=== PATIENT | female | born 2005 | race African-American/Black ===

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

== ENCOUNTER 2024-04-13 12:26 | Emergency (ER) | payer SELFPAY ==
[2024-04-13 13:12] VITALS: BP 105/61; PULSE 72; RESP 16; TEMP 36.6; O2SAT 100; BMI 22.7
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
[2024-04-13 15:39] VITALS: BP 104/60; PULSE 57; RESP 16; TEMP 37; O2SAT 97
[2024-04-13 16:00] VITALS: BP 98/55; PULSE 57; TEMP 36.8; O2SAT 100
[2024-04-13] MEDS: Lidocaine HCl 1 % MPF 5 ML VIAL INFILTRATI (16:06)
[2024-04-13 16:55] VITALS: BP 98/55; PULSE 57; RESP 16; TEMP 36.8; O2SAT 100
== END 2024-04-13 16:56 | disposition home or self-care (01) ==
PROVIDERS: Emergency Provider Internal Medicine
DX: S20.151A Superficial foreign body of breast, right breast, initial encounter (principal); W45.8XXA Other foreign body or object entering through skin, initial encounter; Y93.9 Activity, unspecified; Y92.9 Unspecified place or not applicable; Y99.9 Unspecified external cause status
CPT/HCPCS: 99284

== ENCOUNTER 2025-10-29 13:54 | Emergency (ER) | payer OTHER, SELFPAY ==
[2025-10-29 13:58] VITALS: BP 108/69; PULSE 118; RESP 20; TEMP 37.2; O2SAT 98; BMI 22.0
--- NOTE | 2025-10-29 13:58 | ED_ITS ---
HPI - General Adult General Chief complaint: Abdominal Pain Stated complaint: Left side pain pain Time Seen by Provider: 10/29/25 17:25 History of Present Illness HPI narrative: Author / Clinician: Shun Durán MD Chief Complaint Right-sided flank pain and urinary frequency/urgency ? 5 days History of Present Illness 26-year-old woman with no significant past medical history presents with 5 days of progressive urinary symptoms and right-sided flank pain. She reports new- onset urinary urgency and frequency with a sensation of incomplete bladder emptying and overall low urine output. She denies dysuria or hematuria. Approximately two days after urinary symptoms began, she developed severe right flank pain that was tender to touch and associated with a ?locking up? sensation when attempting to have a bowel movement; this flank pain has since improved and is no longer severe at rest. She continues to note suprapubic tightness/pain and reports feeling ?foggy,? intermittently hot, and having chills but has not recorded a temperature at home. She denies diarrhea, blood in the stool, or other abnormal bowel changes. She has never experienced a urinary tract infection or kidney stones previously. She takes no daily prescription medications but has taken ibuprofen for pain. --- Review of Systems ? Constitutional: Positive for subjective fever/feeling hot, chills; denies weight change. ? Genitourinary: Positive for urinary urgency, frequency, sensation of incomplete emptying, low urine output, suprapubic discomfort; denies dysuria, hematuria. ? Gastrointestinal: Reports ?locking? right flank discomfort with bowel movements; denies diarrhea, blood in stool. ? Neurologic: Reports feeling ?foggy.? ? Other systems not discussed. --- Physical Examination Vital Signs (on arrival): Tachycardic; normotensive; afebrile by measurement (subjective fever reported). ? (No exact values documented.) General: Alert, awake, appears uncomfortable but in no acute distress, well hydrated. Head: Atraumatic. Eyes: Anicteric, normal conjunctiva. ENT: Moist mucous membranes, no pallor. Neck: Supple, no lymphadenopathy. Skin: Warm, well perfused. Respiratory: Breathing comfortably, clear to auscultation bilaterally, symmetric chest expansion; no wheezes, rales, or rhonchi. Cardiovascular: Regular rate and rhythm, no murmurs or rubs, distal extremities warm without edema. Abdominal: Soft, nondistended. Suprapubic tightness/pain. Flank/Back: Right flank tenderness reported previously, minimal tenderness on exam. Left flank nontender. Neurologic: Alert; grossly intact motor function in all extremities. Psych: Calm, cooperative. --- Medical Decision Making Preliminary Differential: - Acute uncomplicated urinary tract infection - Pyelonephritis (most likely given flank pain, systemic symptoms) - Ureterolithiasis with secondary UTI (less likely; no hematuria, no stones seen on POCUS) - Urinary retention with infection This is a 26-year-old female with right-sided flank pain and symptoms concerning for pyelonephritis. No obstruction, JAJA or severe metabolic derangement. Plan: Initial Plan - IV fluid resuscitation for relative hypovolemia/low urine output - Empiric IV antibiotics for UTI/pyelonephritis (medication and dosing per ED protocol) - Pain control with NSAIDs and additional analgesia as needed - Reassess vitals, urine output, and clinical status - Await urinalysis/culture results Independent Data Analysis/Interpretation: - Imaging: Independently interpreted chcos-by-wuyt renal ultrasound ? bilateral kidneys without hydronephrosis; minimal anechoic urine visualized in bladder. - POCUS: see above for renal/bladder ultrasound findings. Additional Complexity: - Social Determinants of health: [ ] - Consults: [ ] - Independent review of external records: None available Risk: Moderate ? acute illness with systemic symptoms (tachycardia, chills) and initiation of IV antibiotics. --- ED Course, Updates [id number] renal ultrasound performed showing normal kidneys without hydronephrosis and minimal bladder urine volume. Patient received IV fluids and initial dose of broad-spectrum antibiotics. Pain controlled with NSAID. Disposition: DC with inproved BP, heart rate, fever and pain on reassessment Critical Care: N/A ? patient not critically ill; no critical care time billed. Related Data Previous Rx's ?Medication ?Instructions ?Recorded bacitracin 500 unit/gram topical 1 appl topical BID #3 0 grams 04/13/24 ointment cephalexin 500 mg capsule 500 mg PO QID 7 days #28 cap s 04/13/24 ciprofloxacin HCl 500 mg tablet 500 mg PO Q12H 7 days #14 tabs 10/29/25 morphine 15 mg immediate release 7 mg (0.4667 x 15 mg) PO BID PRN 10/29/25 tablet pain #7 tabs Allergies Allergy/AdvReac Type Severity Reaction Status Date / Time montelukast (From Singulair) Allergy Unknown Verified 10/29/25 14:01 [facility] Social History Social History Advance Directives: No Advance Directives Information Provided: Yes Do you have a plan to hurt others: No Plan Physical Exam ED Vital Signs: Vital Signs - 24 hr 10/29/25 13:58 10/29/25 18:34 Temperature 98.9 F 98.3 F Pulse Rate 118 H 109 H Respiratory Rate 20 18 Blood Pressure 108/69 100/61 Pulse Oximetry 98 98 Oxygen Delivery Method Room Air Room Air BMI result Body Mass Index 22.0 Course Course Course Narrative: Rapid medical examination performed in triage by Minnie Westfall PA-C: Patient is a 20 year old female presenting to the emergency department with lower abdominal pain and lower back pain. Detailed physical exam and review of systems are deferred to the web marketing specialist. Labs and swabs ordered. Patient placed back in the waiting room pending room availability and results. Medications Administered Discontinued Medications Generic Name Dose Route Start Last Admin Trade Name Freq PRN Reason Stop Dose Admin Acetaminophen 650 mg 10/29/25 21:05 10/29/25 21:09 Acetaminophen 325 Mg Tablet PO 10/29/25 21:06 650 mg ONCE ONE Administration Lactated Ringer's 1,000 mls @ 999 mls/hr 10/29/25 18:15 10/29/25 21:13 Lr IV 10/29/25 20:15 Infused .Q1H1M ALEK Infusion Ceftriaxone Sodium 1 gm/ 50 mls @ 100 mls/hr 10/29/25 18:13 10/29/25 19:13 Sodium Chloride IV 10/29/25 18:42 Infused ONCE ONE Infusion Lactated Ringer's 1,000 mls @ 999 mls/hr 10/29/25 21:15 10/29/25 22:35 Lr IV 10/29/25 22:15 Infused .Q1H1M ALEK Infusion Ketorolac Tromethamine 15 mg 10/29/25 18:13 10/29/25 18:41 Ketorolac Tromethamine 15 Mg/Ml Vial IVPUSH 10/29/25 18:14 15 mg ONCE ONE Administration Morphine Sulfate 2 mg 10/29/25 21:12 10/29/25 21:19 Morphine Sulfate 4 Mg/Ml Cartridge IVPUSH 10/29/25 21:13 2 mg ONCE ONE Administration Protocol Ondansetron HCl 4 mg 10/29/25 19:23 10/29/25 19:27 Ondansetron Hcl 4 Mg/2 Ml Vial IVPUSH 10/29/25 19:24 4 mg ONCE ONE Administration Procedures Procedure Narrative Procedure Narrative: EMERGENCY ULTRASOUND INTERPRETATION-Limited Retroperitoneal (Renal)? The study reveals: Impression: NO EVIDENCE OF UROLOGIC OBSTRUCTION Indication: FLANK PAIN Bladder: ANECHOIC URINE Right Kidney: NO HYDRONEPHROSIS Left Kidney: NO HYDRONEPHROSIS Additional Findings:? Performed by: MD Luis Armando ?CPT: [id number] ; Reference Codes? [email or web address] Medical Decision Making Lab Data 10/29/25 14:33 10/29/25 14:33 Labs: Lab Results 10/29/25 10/29/25 Range/Units 14:33 14:41 WBC 19.6 H (4.8-10.8) X10*3/uL RBC 4.51 (4.20-5.50) X10*6/uL Hgb 12.5 (12.0-16.0) g/dl Hct 37.3 (37.0-47.0) % MCV 82.7 (80.0-98.0) fL MCH 27.7 (27.0-33.0) pg MCHC 33.5 (31.0-35.0) g/dl RDW 12.5 (11.0-16.0) % Plt Count 321 (160-400) X10*3/uL MPV 8.9 L (9.4-12.3) fL Immature Gran % (Auto) 0.9 H (0.0-0.4) % Neut % (Auto) 85.5 H (45-73) % Lymph % (Auto) 6.8 L (20-40) % [place] % (Auto) 6.4 (2-11) % Eos % (Auto) 0.1 (0-4) % Baso % (Auto) 0.3 (0-2) % Lymph # (Auto) 1.3 (1.2-4.9) X10*3/uL [place] # (Auto) 1.3 H (0.1-1.2) X10*3/uL Eos # (Auto) 0.0 (0.0-0.4) X10*3/uL Baso # (Auto) 0.1 (0.0-0.2) X10*3/uL Abs Immat Gran (auto) 0.18 H (0.00-0.03) X10*3/uL Absolute Neuts (auto) 16.7 H (2.0-8.3) x10*3/uL Absolute Nucleated RBC 0.000 (0.0-0.012) X10*3/uL Nucleated RBC % (auto) 0.0 (0.0-0.2) /100WBC Sodium 136 (135-145) mmol/L Potassium 3.4 (3.3-5.1) mmol/L Chloride 104 (96-108) mmol/L Carbon Dioxide 23 (22-29) mmol/L Anion Gap 12 (12-20) BUN 7 L (9-16) mg/dL Creatinine 0.87 (0.5-1.4) mg/dL Estim Creat Clear Calc 83.9 Estimated GFR > 60 Random Glucose 109 (60-115) mg/dL Calcium 9.4 (8.4-10.2) mg/dL Magnesium 1.7 (1.6-2.6) mg/dL Total Bilirubin 1.1 H (0.0-1.0) mg/dL AST 16 (5-31) U/L ALT 7 (0-31) U/L Alkaline Phosphatase 85 (39-117) U/L Total Protein 7.5 (6.5-8.0) g/dL Albumin 4.0 (3.5-5.0) g/dL Beta HCG, Quant < 2 mIU/mL Urine Color Dark Yellow Urine Appearance Turbid Urine pH 6.0 (5.0-9.0) Ur Specific [place] 1.015 (1.005-1.025) Urine Protein 100 (2+) H (Neg-Trace) mg/dL Urine Glucose (UA) Negative (Negative) mg/dL Urine Ketones Negative (Negative) mg/dL Urine Blood Large (3+) H (Negative) Urine Nitrite Positive H (Negative) Ur Leukocyte Esterase Large (3+) H (Negative) Urine RBC 3-5 H (0-2) /HPF Urine WBC >50 H (0-5) /HPF Ur Squamous Epith Cells 11-20 (0-2) /HPF Urine Bacteria 3+ (None Seen) Hyaline Casts 3-5 (0-2) /LPF Influenza Type A (PCR) NEGATIVE (Negative) Influenza Type B (PCR) NEGATIVE (Negative) RSV RNA Qual (PCR) NEGATIVE (Negative) SARS-CoV-2 RNA (RT-PCR) NEGATIVE (Negative) Discharge Plan Discharge Clinical Impression: Pyelonephritis Patient Disposition: Home, Self-Care Instructions: Kidney Infection (ED) Additional Instructions: Discharge Instructions: Acute Pyelonephritis You have been diagnosed with acute pyelonephritis, which is a bacterial infection of your kidney. This infection started in your bladder and traveled up to your kidney, causing the flank pain, urinary symptoms, and fever you experienced. You are being sent home with an antibiotic called ciprofloxacin 500 mg that you should take twice daily (every 12 hours) for 7 days?it is very important that you complete the entire course even if you start feeling better.[ 1] https://www.nejm.org/doi/full/10.1056/ACJGzf4478388 [2] https://Ad Summos.GlobeTrotr.com.com/angie/article-lookup/doi/10.1093/angie/yat037 Drink plenty of fluids and get adequate rest to help your body fight the infection. You should start feeling better within 48-72 hours of starting the antibiotic.[3] https://pubmed.ncbi.nlm.nih.gov/32534244 [1] https://www.nejm.org/doi/full/10.1056/RJTXcs9153992 Return to the emergency department immediately if you develop worsening fever, severe or worsening flank/back pain, persistent vomiting that prevents you from taking your medication or staying hydrated, confusion, difficulty breathing, decreased urination, or if your symptoms do not improve within 2-3 days of starting the antibiotic.[1] https://www.nejm.org/doi/full/10.1056/VXIMty1764370 Follow up with your primary care doctor within 1-2 weeks, or sooner if your symptoms are not improving. Prescriptions: New ciprofloxacin HCl 500 mg tablet 500 mg PO Q12H 7 Days Qty: 14 0RF morphine 15 mg tablet 7 mg PO BID PRN (Reason: pain) Qty: 7 0RF Rx Instructions: Partial Fill upon patient request. No Action cephalexin 500 mg capsule 500 mg PO QID 7 Days Qty: 28 0RF bacitracin 500 unit/gram ointment 1 appl topical BID Qty: 30 0RF Interventions: ED Discharge Assessment Last Done: 10/29/25 23:12 Discharge Date/Time: 10/29/25 23:12 Print Language: Czech
--- NOTE | 2025-10-29 14:03 | ECG_ITS ---
Test Reason : tachy Blood Pressure : */* mmHG Vent. Rate : 101 BPM Atrial Rate : 101 BPM P-R Int : 180 ms QRS Dur : 62 ms QT Int : 306 ms P-R-T Axes : 43 59 43 degrees QTcB Int : 396 ms Sinus tachycardia Otherwise normal ECG No previous ECGs available Referred By: Minnie Westfall Electronically Signed By: MALLORY ZELAYA
[2025-10-29 14:39] LABS: MANUAL DIFF FLAG NO
[2025-10-29 14:44] LABS: Hematocrit 37.3 % (37.0-47.0); Hemoglobin 12.5 g/dl (12.0-16.0); Imm Gran Abs Auto 0.18 X10*3/uL (0.00-0.03); Imm Gran Pct Auto 0.9 % (0.0-0.4); Lymphocytes Absolute Auto 1.3 X10*3/uL (1.2-4.9); Mean Corpuscular HGB Conc 33.5 g/dl (31.0-35.0); Mean Corpuscular Hemoglobin 27.7 pg (27.0-33.0); Mean Corpuscular Volume 82.7 fL (80.0-98.0); NRBC Abs Auto 0.000 X10*3/uL (0.0-0.012); NRBC Pct Auto 0.0 /100WBC (0.0-0.2); Platelet Count 321 X10*3/uL (160-400); Red Blood Count 4.51 X10*6/uL (4.20-5.50); White Blood Count 19.6 X10*3/uL (4.8-10.8)
--- OUTSIDE RECORDS SUMMARY | 2025-10-29 14:47 | XMS_ITS | Clinical Summary ---
Author Organization [address] Building Address [address] [place] [address] Phone Care Team Providers Care [employer] Name Role Phone Jason Penn MD Primary Care Provider [phone] Allergies No known active allergies Medications metroNIDAZOLE (FLAGYL) 500 mg tablet Take 1 tablet (500 mg total) by mouth 2 (two) times a day for 7 days. Do not consume alcohol until 48 hours after last dose 14 tablet 09/23/2025 09/30/20 25 Active Problems No known active problems Encounters Date Type Department Care Team Description 09/23/2025 Telephone [facility] [address] [phone] Casey Burger PA 09/22/2025 4:45 PM EST Office Visit Walk-In [facility] - [address] [phone] Juan Horton NP Screening examination for STI (Primary Dx) from Last 3 Months Family History Medical History Relation Name Comments Strabismus Father Cataracts Maternal Grandmother Blindness Neg Hx Glaucoma Neg Hx Macular degeneration Neg Hx Relation Name Status Comments Father Maternal Grandmother Social History Tobacco Use Types Packs/Day Years Used Date Smoking Tobacco: Never Comments Unknown Sex and Gender Information Value Date Recorded Sex Assigned at Not on file Legal Sex Female 8:46 AM EST Gender Identity Not on file Sexual Orientation Not on file Last Filed Vital Signs Vital Sign Reading Time Taken Comments Blood Pressure 92/54 09/22/2025 4:56 PM EST Pulse 68 09/22/2025 4:56 PM EST Temperature 36.6 C (97.8 F) 09/22/2025 4:56 PM EST Respiratory Rate - - Oxygen Saturation 98% 09/22/2025 4:56 PM EST Inhaled Oxygen Concentration - - Weight 57.1 kg (125 lb 14.4 oz) 024 12:28 PM EST Height 160 cm (5' 3 ) 12/18/2023 12:28 PM EST Body Mass Index 22.3 12/18/2023 12:28 PM EST Plan of Treatment Health Maintenance Due Date Last Done Comments IPV Vaccines (4 of 4 - 4-dose series) 2007 07/26/2004, 02/29/2004, 02/19/2004, Additional history exists Pneumococcal Vaccine: Pediatrics (0 to 5 Years) and At-Risk Patients (6 to 49 Years) (1 of 1 - PPSV23, PCV20, or PCV21) 2009 01/06/2005, 07/26/2004, 02/19/2004, Additional history exists Meningococcal B Vaccine (1 of 2 - Standard) 2019 HIV Screening 10/05/2022 Hepatitis C Screening 10/05/2022 Social Influencers of Health Screening 10/05/2022 Cervical Cancer Screening: Pap Smear 2024 Depression Screening 11/02/2024 COVID-19 Vaccine ( season) 2025 Influenza Vaccine (#1) 2025 12/18/2023, 2015 Gonorrhea/Chlamydia Screening 09/22/2026 09/22/2025, 05/19/2025 DTaP,Tdap,and Td Vaccines (8 - Td or Tdap) 12/18/2033 12/18/2023, 08/23/2015, 02/28/2008, Additional history exists RSV Immunization Adult Patients (1 - 1-dose 75+ series) 2078 Hepatitis B Vaccines Completed 06/25/2004, 2003, 2003 HIB Vaccines Completed 01/06/2005, 04/03, 02/19/2004, Additional history exists MMR Vaccines Completed 01/28/2008, 10/18/2004 Varicella Vaccines Completed 01/28/2008, 10/18/2004 Hepatitis A Vaccines Completed 01/21/2021, 08/12/20 Meningococcal ACWY Vaccine Completed 01/21/2021, HPV Vaccines Completed 02/19/2024, 09/0 07/2016, 10/29/2015, Additional history exists RSV Immunization Patients Under 20 months Aged Out No longer eligible based on patient's age to complete this topic Procedures Procedure Name Priority Date/Time Associated Diagnosis Comments CHLAMYDIA TRACHOMATIS AND NEISSERIA GONORRHOEAE PCR Routine 09/22/2025 5:23 PM EST Screening examination for STI VAGINITIS PATHOGENS BY PCR Routine 09/22/2025 5:23 PM EST Screening examination for STI from Last 3 Months Results * (ABNORMAL) Vaginitis pathogens molecular study (09/22/2025 5:23 PM EST) Trichomonas vaginalis Positive(A) Negative 09/23/2025 1:06 PM EST [facility] Gardnerella vaginalis Positive(A) Negative 09/23/2025 1:06 PM EST [facility] Janet Species Negative Negative 1:06 PM EST [facility] Swab Vaginal structure / Unknown Non-blood Collection / Unknown 09/22/2025 5:23 PM EST 09/22/2025 5:23 PM EST us Juan Horton NP LAB MICROBIOLOGY - GENERAL OR DERABLES Final Result [facility] [address] [place] [address], * Chlamydia trachomatis and Neisseria gonorrhoeae molecular study (09/22/2025 5:23 PM EST) Neisseria gonorrhoeae PCR Negative Negative LAB MOLECULAR DIAGNOSTICS METHOD 09/23/2025 9:59 AM EST [facility] Chlamydia trachomatis PCR Negative Negative LAB MOLECULAR DIAGNOSTICS METHOD 09/23/2025 9:59 AM EST [facility] Urine Urine specimen from urethra / Unknown Non-blood Collection / Unknown 09/22/2025 5:23 PM EST 09/22/2025 5:23 PM EST us Juan Horton SCRUBBER SYSTEM ATTENDANT LAB MICROBIOLOGY - GENERAL OR DERABLES Final Result [facility] [address] [place] [address], from Last 3 Months Insurance [facility] [employer] Care Teams [employer] Relationship Specialty Start Date End Date Jason Penn MD [address] [place] [address] PCP - General Internal Medicine 05/19/25
--- OUTSIDE RECORDS SUMMARY | 2025-10-29 14:47 | XMS_ITS ---
Author Name [facility] Organization Unknown Care Team Organization Name Specialty Phone Email Start Date End Da te [facility] Olive Garrison Primary Care 07/09/202306/20 [facility] PRAVEEN SANCHEZ Primary Care 09/09/2022
--- OUTSIDE RECORDS SUMMARY | 2025-10-29 14:47 | XMS_ITS | Data Portability ---
Author Organization [place] - [facility] Address [address] [place] [address] Care Team Providers Care Acquisitions Librarian Name Role Phone [facility] OTHER Assessment Encounter Date Assessment Date Assessment LastModified by Organization Details LastModified Time 10/23/2021 10/23/2021 Proper Personal Protective Equipment (PPE), including gloves, eye protection and masks were donned and doffed appropriately and all equipment cleaned using approved technique with germicidal disposable wipes prior to and after care of this patient according to [facility]'s infection prevention protocols. Overview/History : 16 yo unvaccinated female with 1.5d of body ache with no other symptoms wants a COVID test Exam: pulm, ENT exams benign, pt in NAD DDx considered, but not limited to: COVID viral illness Work up/Results: PCR sent out Plan/Discussion: -nontoxic appearing NAD no resp distress AVSS -send out PCR -pt will maintain po intake -if symptoms worsen she will seek emergent re-eval In order to obtain further information and compare any laboratory results/values, I have accessed . This information was pertinent in my medical decision making today. [email or web address] Not available 10/23/2021 13:01:37 Plan of Treatment Reminders Order Date Submit Date Provider Last Modified By Organization Details Last Modified Time Details Appointments None recorded. Lab unlisted lab - covid-19 (novel coronaviru s) PCR 2020 021 [place] (Centralized Electronic Ordering - All Locations), Patient Can Go To The Location Of Their Choice, [id number] 21:23:25 Referral None recorded. Procedures None recorded. Surgeries None recorded. Imaging None recorded. Medication Orders None recorded. Patient TargetsNo targets recorded. Patient Instructions Encounter Date Encounter Id Patient Instructions Last Modified By Organization Details Last Modified Time 10/23/2021 [id number] Inhaler Instructions Before use, you need to prime the inhaler: Take the cap off the mouthpiece and put the inhaler in the spacer Shake the inhaler for 5 seconds Hold the inhaler upright with 1 finger on the top of the canister, the thumb on the bottom of the inhaler, and your other hand holding the spacer Express a large breath Close lips around spacer Press down on the canister After you press down on the canister, breathe (or have your child breathe in) deeply and slowly and hold your breath for 10 seconds Take out of your mouth and slowly exhale If you were instructed to take 2 puffs of the inhaler, wait one minute before you give the second puff. Shake the inhaler again before the second puff. If the inhaler is a steroid medicine (also called a g lucocorticoid or c orticosteroid ), rinse out your mouth, gargle, and spit out the water Cleaning: If you use the inhaler every day, you need to clean it at least once a week. If you use less often, clean the inhaler when you see powder in or around the hole. To clean an inhaler: Remove the canister and cap from the mouthpiece. Do not wash the canister or put the canister under water. Run warm water through the mouthpiece for 30 to 60 seconds Shake the water off of the mouthpiece and let it air dry Clean the spacer every 1-2 weeks. First, remove the inhaler from the spacer. Wash the spacer with warm water and dishwashing soap, but do NOT rinse it. Then let it air dry. Leaving the spacer a little soapy after cleaning actually helps it work better. [email or web address] Not available 10/23/2021 12:50:50 Reason for Referral None Reported. Results Created Date Observation Date Name Description Value Unit Range Abnormal Flag Note LastModifiedBy Organization Detail LastModifiedTime 10/23/20 21 10/24/2021 COVID -19 (NOVE L CORON AVIRU S) PCR covid-19 PCR specimen source NASAL Not Available [facility] (Centralized Electronic Ordering - All Locations) Patient Can Go To The Location Of Their Choice, [id number] 10/26/2021 21:23:25 10/23/20 21 10/26/2021 COVID -19 (NOVE L CORON AVIRU S) PCR covid-19 PCR result (neg) abnormal POSIT STEPH Posit steph for detec tion of 2019- novel Coron aviru s (2018 -nCoV ) by real- time RT-PC R. Resul t repor steven to the [facility]. To preve nt error s in diagn osis, test resul ts shoul d be inter prete d in the jose xt of clini aníbal findi ngs and other labor atory data. Rare polym orphi sms exist that could lead to false -nega tive or false -posi tive resul ts. If resul ts obtai miky do not match the clini aníbal findi ngs, addit ional testi ng shoul d be consi dered . This test has been autho rized by the FDA under an Emerg ency Use Autho rizat ion (EUA) for use by autho rized labor atori es. Testi ng perfo rmed by real time PCR utili [facility] Aero0 SARS- CoV-2 test. Not Available [facility] (Centralized Electronic Ordering - All Locations) Patient Can Go To The Location Of Their Choice, [id number] 10/26/2021 21:23:25 Result Notes None recorded. Medical Equipment None Reported. Medications Name Sig Start Date Stop Date Status Note LastModified by Organization Details LastModified Time cetirizine 10 mg tablet active Not Available Not Available Not Available tretinoin 0.025 % topical cream active Not Available Not Availabl e Not Available metronidazole 500 mg tablet active Not Available Not Available No t Available sulfacetamide sodium (acne) 10 % lotion (suspension) active Not Available Not Available Not Available prochlorperazine maleate 10 mg tablet active Not Available Not Available Not Available sulfamethoxazole 800 mg-trimethoprim 160 mg tablet active Not Available Not Availabl e Not Available cefadroxil 500 mg capsule active Not Available Not Available Not Available misoprostol 200 mcg tablet active Not Available Not Available N ot Available fluticasone propionate 50 mcg/actuation nasal spray,suspension active Not Available Not Avail able Not Available clindamycin 1 % lotion active Not Available Not Available Not Available Vitals Date Recorded Heart rate Oxygen saturation Respiratory rate Body temperature Systolic And Diastolic Provider Name and Address Organization Details Last Updated DateTime 91 /min 97 % 18 /min 97.4 [degF] 110/70 mm[Hg] Not Available [facility] 12:54:30 Social History None recorded. Functional Status None recorded. Mental Status None recorded. Family History Nothing Reported. Medical History No medical history recorded. Gynecological HistoryNo gynecological history recorded. Obstetrics History GPAL:G 0 P 0 0 0 0 Past Encounters Encounter ID Performer Location Encounter Start Date Encounter Closed Date Diagnosis/Indication Diagnosis SNOMED-CT Code Diagnosis ICD10 Code Diagnosis IMO Codes Diagnosis Note [id number] DARYA Melendez [facility] [address] [place] [address] 10/23/2021 12:48:36 10/28/2021 20:35:11 Viral syndrome 249505182 B34.9 Health Concerns Section Related Observation LastModified by Organization Detai ls LastModified Time None Recorded Concern Status LastModified by Organization Details LastModified Time None Recorded Advance Directives Directive None Recorded Payers Insurance Date Sequence Insurance Name Policy Number Policy Mcclain Covered Member ID Mcclain Member ID Guarantor Name 10/27/2021 1 *SELF PAY* Shun Henry [id number] Shun Henry 10/28/2021 1 [facility] - MEDICARE PREFERRED (MEDICARE REPLACEMENT HMO) [id number] Shun Henry [id number] Shun Henry 10/27/2021 1 [facility] - MEDICARE PREFERRED (MEDICARE REPLACEMENT HMO) [id number] Shun Llan[place]on [id number] Shun Henry 10/28/2021 1 [facility] TOGETHER WITH [facility] (MEDICAID HMO) [id number] Shun Henry [id number] Shun Henry Notes Date Note Type Note Provider Name and Address Organization Details Recorded Time 10/23/2021 text/html General HPI Template - DHReported by Patient 16 yo female new to provider and DHc/o body aches x1.5 daysnot getting worsehavent checked temp - doesnt feel like a feverno coughno sick contactnot vaccinated DARYA Melendez [address], [place], [address], [place] - [facility] 10/23/2021 18:39:20 OBGyn Episode No OBEpisode recorded.
[2025-10-29 14:48] LABS: Appearance Urine Turbid; Glucose Urine UA Negative (Negative); PH 6.0 (5.0-9.0); Specific Gravity - Urine 1.015 (1.005-1.025); UMIC TRIGGER UACC YES
[2025-10-29 14:59] LABS: UACC Culture Trigger YES
[2025-10-29 15:11] LABS: Alanine Aminotransferase 7 U/L (0-31); Albumin Level 4.0 g/dL (3.5-5.0); Alkaline Phosphatase 85 U/L (39-117); Anion Gap 12 (12-20); Aspartate Amino Transferase 16 U/L (5-31); Blood Urea Nitrogen 7 mg/dL (9-16); Calcium 9.4 mg/dL (8.4-10.2); Carbon Dioxide 23 mmol/L (22-29); Chloride 104 mmol/L (96-108); Creatinine Clr Calc Pharmacy 83.9; Estimated Glomerular Filt Rate > 60; Magnesium 1.7 mg/dL (1.6-2.6); Potassium 3.4 mmol/L (3.3-5.1); Sodium 136 mmol/L (135-145); Total Protein 7.5 g/dL (6.5-8.0)
[2025-10-29 15:25] LABS: Resp Syncy Virus RNA Qual PCR NEGATIVE (Negative); SARS COV2 PCR INHOUSE NEGATIVE (Negative)
[2025-10-29 18:34] VITALS: BP 100/61; PULSE 109; RESP 18; TEMP 36.8; O2SAT 98
[2025-10-29] MEDS: Lactated Ringers 1,000 ML 999 ML IV ×3 (18:40→21:20)
[2025-10-29 21:10] VITALS: BP 96/62; PULSE 120; RESP 20; TEMP 39.1; O2SAT 99
[2025-10-29 22:30] VITALS: BP 92/51; PULSE 108; RESP 20; TEMP 37.7; O2SAT 97
[2025-10-29 23:12] VITALS: BP 92/51; PULSE 105; RESP 20; TEMP 37.7; O2SAT 97
--- NOTE | 2025-11-04 10:58 | PC.NURSE ---
patient called for work note, advised we can give 3 days afetr dc. patient upset, states the morphine did not help her pain. patient advised to seek care at pcp or emergency room as advised on dc papers.
== END 2025-10-29 23:12 | disposition home or self-care (01) ==
PROVIDERS: Physician Assistant Medical; Emergency Provider Emergency Medicine
DX: R10.A2 Flank pain, left side (principal); N10 Acute pyelonephritis; R00.0 Tachycardia, unspecified; Z03.818 Encounter for observation for suspected exposure to other biological agents ruled out
CPT/HCPCS: 76775; 80053; 81001; 83735; 84702; 85025; 87086; 87088; 87186; 87637; 93005; 96361; 96374; 96375; 99284; J0696; J1885; J2270; J2405; J7120

== ENCOUNTER → 2025-10-29 14:03 | Outpatient (BNV) | payer OTHER, SELFPAY | PROVIDERS: Emergency Provider Emergency Medicine; Visit Provider Internal Medicine | DX: R00.0 Tachycardia, unspecified (principal) | CPT/HCPCS: 93010 ==